=== PATIENT | female | born 1965 | race Caucasian/White ===

== ENCOUNTER → 2016-07-10 | Outpatient (CLI) | payer BC ==
[~2016-07-10] MED LIST: MULT-506 PO; copaxone INJ
== END | disposition home or self-care (01) ==
LOC: C.PAPS 10:23
PROVIDERS: ATTEND Obstetrics & Gynecology
DX: Z01.419 Encounter for gynecological examination (general) (routine) without abnormal findings (principal)

== ENCOUNTER → 2017-01-27 | Outpatient (CLI) | payer BC ==
--- NOTE | 2017-01-28 12:45 | MAMMOGRAPHY REPORT ---
BILATERAL DIGITAL SCREENING MAMMOGRAM TOMOSYNTHESIS WITH CAD: 01/27/2017 CLINICAL HISTORY: Routine screening. Patient has no complaints. TECHNIQUE: Breast tomosynthesis in addition to standard 2D mammography was performed. Current study was also evaluated with a Computer Aided Detection (CAD) system. COMPARISON: Comparison is made to exams dated: 01/24/2016 mammogram, 12/13/2014 mammogram, 12/07/2013 ma mmogram, 12/06/2012 mammogram, 11/25/2011 mammogram, and 11/22/2010 mammogram - [facility] [place] [facility]. BREAST COMPOSITION: There are scattered areas of fibroglandular density in both breasts. FINDINGS: The parenchymal pattern is unchanged. No developing mass, architectural distortion or clus ter of suspicious microcalcifications is seen in either breast. IMPRESSION: ACR BI-RADS CATEGORY 2: BENIGN There is no mammographic evidence of malignancy. A 1 year screening mammogram is recommended. The pa tient will receive written notification of the results. Approximately 10% of breast cancers are not detected with mammography. A negative mammographic report should not delay biopsy if a clinically suggestive mass is present. Elena Pretty M.D. ay/:01/27/2017 16:32:27 Dog Control Officer: Betty GUNTER(Radha)(M), [facility] letter sent: Normal 1/2 BI-RADS Code: ACR BI-RADS Category 2: Benign
== END | disposition home or self-care (01) ==
LOC: C.MAMM 07:29
PROVIDERS: ATTEND Obstetrics & Gynecology
DX: Z12.31 Encounter for screening mammogram for malignant neoplasm of breast (principal)

== ENCOUNTER → 2017-07-13 | Outpatient (CLI) | payer BC, OTHER | END | disposition home or self-care (01) | LOC: C.PAPS 09:48 | PROVIDERS: ATTEND Obstetrics & Gynecology | DX: Z01.419 Encounter for gynecological examination (general) (routine) without abnormal findings (principal) ==

== ENCOUNTER → 2018-02-03 | Outpatient (CLI) | payer OTHER ==
--- NOTE | 2018-02-03 14:54 | MAMMOGRAPHY REPORT ---
BILATERAL DIGITAL SCREENING MAMMOGRAM TOMOSYNTHESIS WITH CAD: 02/03/2018 CLINICAL HISTORY: Routine screening. Patient has no complaints. TECHNIQUE: The study was acquired using full field digital technology and interpreted from soft copy. Breast tomosynthesis in addition to standard 2D mammography was performed. Current study was also ev aluated with a Computer Aided Detection (CAD) system. COMPARISON: Comparison is made to exams dated: 01/27/2017 mammogram, 01/24/2016 mammogram, 12/13/2014 m ammogram, 12/07/2013 mammogram, 12/06/2012 mammogram, and 11/25/2011 mammogram - [facility]. BREAST COMPOSITION: There are scattered areas of fibroglandular density in both breasts. FINDINGS: There is a newly visualized small round partially circumscribed and partially obscured 5 mm mass with in the left lower inner quadrant, for which targeted ultrasound and possible additional spot compress ion tomosynthesis views are recommended for further evaluation. The remainder of both breasts are stable compared to prior exams, without suspicious masses, calcific ations, or areas of architectural distortion noted. IMPRESSION: ACR BI-RADS CATEGORY 0: INCOMPLETE EVALUATION: NEED ADDITIONAL IMAGING EVALUATION Left breast mass, for which additional imaging evaluation is recommended. The patient will be called to schedule an appointment. Some breast cancers are not detected with mammography. A negative mammographic report should not jorge luis y biopsy if a clinically suggestive mass is present. Gem Kelley M.D. ah/:02/03/2018 08:01:28 Linen Room Worker: Betty Vazquez RT(R)(M), [facility] letter sent: Addl Imaging 0 BI-RADS Code: ACR BI-RADS Category 0: Incomplete Evaluation: Need Additional Imaging Evaluation
== END | disposition home or self-care (01) ==
LOC: C.MAMM 07:22
PROVIDERS: ATTEND Obstetrics & Gynecology
DX: Z12.31 Encounter for screening mammogram for malignant neoplasm of breast (principal); N63.20 Unspecified lump in the left breast, unspecified quadrant

== ENCOUNTER → 2018-02-08 | Outpatient (CLI) | payer OTHER ==
--- NOTE | 2018-02-08 15:12 | MAMMOGRAPHY REPORT ---
UNILATERAL LEFT DIGITAL DIAGNOSTIC MAMMOGRAM TOMOSYNTHESIS AND LEFT ULTRASOUND: 02/08/2018 CLINICAL HISTORY: 52-year-old woman called back from screening mammography for a newly visualized levy und 5 mm mass in the left lower inner quadrant. TECHNIQUE: Spot compression left CC and MLO 2D and tomosynthesis images were obtained. COMPARISON: Comparison is made to exams dated: 02/03/2018 mammogram, 01/27/2017 mammogram, 01/24/2016 ma mmogram, 12/13/2014 mammogram, 12/06/2012 mammogram, and 11/25/2011 mammogram - [facility]. BREAST COMPOSITION: There are scattered areas of fibroglandular density in left breast. FINDINGS: The spot compression tomosynthesis views of the left lower inner breast demonstrate a persi stent 5 mm partially circumscribed round to oval mass in the lower inner middle one third of the [address]. No associated calcification or architectural distortion. There is a possible second low-density gently lobulated mass in the upper inner left breast measuring 9.5 x 4.7 mm, best seen on CC spot co mpression tomosynthesis slice 35/54. Therefore further evaluation with ultrasound was also performed in the left upper inner quadrant. Targeted ultrasound was performed in the left lower inner and upper inner quadrants. In the 7:00 axi s, 2 cm from the nipple, there is a gently lobulated circumscribed anechoic benign simple cyst withou t internal vascularity, corresponding with the mammographic finding, measuring 4.5 x 2.9 x 5.3 mm. T his is benign and no further close follow-up is needed at this time. In the upper inner quadrant of the left breast, 2 benign cyst clusters are identified. The first is in the 11:00 left breast, 3 cm from the nipple, measuring 7.6 x 3.0 x 4.9 mm, and the second is in the 10:30 axis, 4 cm from the nip ple, measuring 4.4 x 3.0 x 9.1 mm. This may correspond with the second gently lobulated mammographic mass in the upper inner quadrant. Both of these cysts clusters are benign. The findings in the lef t breast are compatible with benign fibrocystic change. Recommend return to annual screening mammogr aphy schedule, due in February 2019. IMPRESSION: ACR BI-RADS CATEGORY 2: BENIGN, ULTRASOUND ACR BI-RADS CATEGORY 2: BENIGN 1. The 5 mm mass in the left lower inner breast corresponds with a benign anechoic simple cyst on ul trasound, identified in the 7:00 axis. Incidental note is made of 2 additional cysts clusters in the right breast at 10:30 and 11:00 axes. These findings are compatible with benign fibrocystic change. There is no mammographic or targeted sonographic evidence of malignancy in the left breast. Recomm end return to annual screening mammography schedule, due in February 2019. Some breast cancers are not detected with mammography. A negative mammographic report should not jorge luis y biopsy if a clinically suggestive mass is present. Elena Pretty M.D. ay/:02/08/2018 14:23:58 Refrigerated National Truck Driver: Tena Brannon, [facility]; Elena Pretty, [facility] letter sent: Normal 1/2 OVERALL STUDY BIRADS: 2 Benign
== END | disposition home or self-care (01) ==
LOC: C.MAMM 13:14
PROVIDERS: ATTEND Obstetrics & Gynecology
DX: N63.24 Unspecified lump in the left breast, lower inner quadrant (principal)